=== PATIENT | male | born 1960 | race Caucasian/White ===

== ENCOUNTER 2021-09-06 05:34 | Day surgery (SDC) | payer OTHER ==
[~2021-09-06] VITALS: Ht 177.8 cm; Wt 93.2 kg
[2021-09-06] VITALS (7 sets, daily range): BP systolic 102–145; BP diastolic 66–89; PULSE 63–73; TEMP 97.2–98.2
[2021-09-06] MEDS ORDERED: PROSCAR 5MG5 MG PO (05:59)
[2021-09-06] MEDS ORDERED: NORCO 325 MG-51 TAB PO (10:08)
[2021-09-06] MEDS ORDERED: MOTRIN 600600 MG/TAB PO (10:09)
--- NOTE | 2021-09-06 10:25 | NUR ---
Patient returns to room 8 per cart from PACU accompanied by Gay CAMPO and is awake and alert. IV fluids infusing. Exofin dressing covering incisions x3 with wound edges well approximated. Patient denies pain or nausea. Siderails up x2 and call light in reach. Temp 97.4 and room air sats 96%. Siderails up x2 and call light in reach. Sipping on water.
--- NOTE | 2021-09-06 10:40 | NUR ---
Resting and continues to drink water. States pain is very minimal.
--- NOTE | 2021-09-06 10:55 | NUR ---
Eating muffin and drinking orange juice. Denies nausea.
--- NOTE | 2021-09-06 11:10 | NUR ---
Resting when not disturbed.
--- NOTE | 2021-09-06 11:25 | NUR ---
Medicated with [place] 5mg one tab for pain at 2-12/21. IV to INT. Assisted up to the bathroom and gait is steady. Unable to void and returns to room. Drinking diet Sprite. Allowed to rest.
--- NOTE | 2021-09-06 12:00 | NUR ---
Resting and drinking fluids. Awaits ride home.
--- NOTE | 2021-09-06 12:47 | NUR ---
Assisted up to the bathroom. Voids and returns to room. Ride here. INT discontinued and site is free of redness.
--- NOTE | 2021-09-06 13:05 | NUR ---
Patient is dressed and given dismissal instructions. Voices understanding of these.
--- NOTE | 2021-09-06 13:09 | NUR ---
Patient dismissed to home driven by daughter and taken to vehicle per wheelchair and assisted into car with dismissal instructions in hand.
== END 2021-09-06 13:09 | disposition home or self-care (01) ==
LOC: SDCO 05:34
DX: K40.20 Bilateral inguinal hernia, without obstruction or gangrene, not specified as recurrent (principal); Z79.899 Other long term (current) drug therapy; Z80.9 Family history of malignant neoplasm, unspecified
CPT/HCPCS: C1781; J0690; J0694; J1885; J2405; J2704; J3010; J7120